=== PATIENT | male | born 1940 | race Caucasian/White ===

== ENCOUNTER 2018-02-16 01:52 | Inpatient (IN) ==
[2018-02-16] MEDS ORDERED: Bisacodyl 10 MG Supp RECTAL PRN (04:31)
[2018-02-16] MEDS ORDERED: Potassium Chlor 20 mEq Premix 20 MEQ/100 ML PIGGYBACK IV.SIG PRN ×2 (04:31)
[2018-02-16] MEDS ORDERED: Potassium Phosphate Inj 30 MMOL in Sodium Chlor 0.9% Inj 250 ML IV.SIG PRN (04:31)
[2018-02-16] MEDS ORDERED: Potassium Chlor 40 mEq Premix 40 MEQ/100 ML PIGGYBACK IV.SIG PRN ×2 (04:31)
[2018-02-16] MEDS ORDERED: Magnesium Oxide 400 MG Tablet PO PRN (04:31)
[2018-02-16] MEDS ORDERED: Potassium Chloride 25 MEQ Effervescent Tablet PO PRN (04:31)
[2018-02-16] MEDS ORDERED: Magnesium Sulfate Inj 2 GM in Sodium Chlor 0.9% Inj 96 ML IV.SIG PRN (04:31)
[2018-02-16] MEDS ORDERED: Acetaminophen 325 MG Tablet PO PRN (04:31)
[2018-02-16] MEDS ORDERED: Sodium Phosphate Inj 30 MMOL in Sodium Chlor 0.9% Inj 250 ML IV.SIG PRN (04:31)
[2018-02-16] MEDS ORDERED: Magnesium Sulfate Inj 4 GM in Sodium Chlor 0.9% Inj 92 ML IV.SIG PRN (04:31)
[2018-02-16] MEDS ORDERED: Potassium Phosphate 500 MG Soluble Tablet PO PRN ×2 (04:31)
[2018-02-16] MEDS ORDERED: Sod Chloride 0.9% Inj 1,000 ML IV.CONT SCH (04:45)
--- NOTE | 2018-02-16 04:55 | P.HPCC ---
History of Present Illness Service: [facility] Primary Care Physician: UNKNOWN Chief Complaint: Neck pain History of Present Illness: 77yM transferred from [facility] for cervical spinal epidural abscess. The patient is a "snow bird" who visits during the winter from [place]. He reports that he flew here 4 days ago, and 3 days ago woke up with severe pain in his upper neck. He reports chronic "pins and needles" to the fingers of both hands and to both feet which is unchanged from baseline; he also reports chronic urinary incontinence. Denies trauma, fever or chills, extremity weakness, new areas of numbness/ paresthesias, saddle anesthesia, foot drop, or difficulty ambulating. He denies history of IVDA and has not had any spinal injections. The patient states that he had surgery on his neck in [place], [place] in 1994 for "back pain" (not traumatic) but is unsure of what his diagnosis at that time was. He uses both a cane and a walker to ambulate at baseline and is independent of all ADLs. The patient was seen at [facility] yesterday evening and had a non- contrast CT of his cervical spine performed which was read as "Posterior epidural fluid collection extending from C1-C3, coursing between the C1 and C2 spinous processes and extending into the posterior occipital paraspinal soft tissues. The epidural component of the fluid collection contributes to moderate to severe canal stenosis at C2-C3, with flattening of the cervical cord at this level. No evidence of overt osseous destructive changes to suggest osteomyelitis / discitis. Cannot exclude epidural abscess and the sterility of the collection should be determined on a clinical basis, however contrast-enhanced MRI is recommended to further assess for early osteomyelitis/ discitis or cord signal changes at C2-C3. Nonspecific skin thickening with mild subcutaneous and superficial fascial edema of the left occipital and posterior neck soft tissues. Postsurgical changes of C4-C5 ACDF without evidence of hardware complication. Multilevel, multifactorial cervical spondylosis as described in detail above." The ED physician at [facility] spoke with Dr. Karimi of neurosurgery prior to transfer and the patient was given a dose of solumedrol, cefepime, and vanco. Of note, the patient has a pacemaker and therefore is unable to have an MRI performed. - Diagnosis (1) Spinal epidural abscess (2) H/O cardiac pacemaker (3) Chronic back pain Inpatient Certification: I certify that the inpatient services were ordered in accordance with Medicare regulations governing the order. This includes certification that hospital inpatient services are reasonable and necessary and in the case of services not specified as inpatient-only under 42 CFR 419.22(n), that they are appropriately provided as inpatient services in accordance to with the 2-midnight benchmark under 43 CFR 412.3(e) Estimated Total Length of Stay (Days): 7 Plans for Post Hospital Care: Not yet determined Review of Systems All other systems reviewed negative except as stated in HPI Constitutional: Denies fever(s) Eyes: Denies blurry vision Comments: Hard of hearing Cardiovascular: Denies chest pain Respiratory: Denies cough Gastrointestinal: Denies nausea Comments: Chronic urinary incontinence Musculoskeletal: Reports neck pain, Denies abnormal walking Neurologic: Denies confusion Psychiatric: Denies confusion PMFSH - History History Provided By: Patient, Medical Record - Medical History Medical History: Medical History (Last Updated 02/16/18 @ 09:00 by Quinn Karimi MD) Emphysema, unspecified GERD (gastroesophageal reflux disease) High cholesterol Hypotension Myocardial infarction Presence of intrathecal pump - Surgical History Surgical History: Surgical History (Last Reviewed 02/16/18 @ 08:55 by Quinn Karimi MD) History of ankle surgery History of back surgery History of coronary artery stent placement History of neck surgery History of permanent cardiac pacemaker placement Hx of joint replacement Hx of tonsillectomy - Social History I have reviewed the patient's Social History: Yes Medications and Allergies Active Medications: Active Medications Acetaminophen (Tylenol) 650 mg PO Q6H PRN PRN Reason: PAIN 1-10 AND/OR FEVER >101F Al Hydroxide/Mg Hydroxide (Milk Of Ronaldo Lipatricia) 30 ml PO Q12H PRN PRN Reason: Mild Constipation Bisacodyl (Dulcolax Supp) 10 mg RECTAL DAILY PRN PRN Reason: SEVERE CONSITIPATION Chlorhexidine Gluconate (Chlorhexidine 2% Cloth) 3 pack TOPICAL DAILY@0400 EDUARDO Stop: 02/22/18 03:59 Chlorhexidine Gluconate (Chlorhexidine 2% Cloth) 3 pack TOPICAL DAILY@0400 PRN PRN Reason: Extra cloth needed Stop: 02/22/18 03:59 Famotidine (Pepcid Pf Inj) 20 mg IV.PUSH Q12HR EDUARDO Famotidine (Pepcid) 20 mg PO BID EDUARDO Magnesium Sulfate 4 gm/ Sodium (Chloride) 100 mls @ 50 mls/hr IV.SIG UNSCH PRN PRN Reason: For Magnesium 0.9 - 1.1 mg/dL Magnesium Sulfate 2 gm/ Sodium (Chloride) 100 mls @ 50 mls/hr IV.SIG UNSCH PRN PRN Reason: For Magnesium 1.2 - 1.6 mg/dL Sodium Chloride (Ns Inj) 1,000 mls @ 84 mls/hr IV.CONT .[id number] EDUARDO Potassium Chloride (Kcl 40 Meq Premix Inj) 40 meq in 100 mls @ 25 mls/hr IV.SIG Q2H PRN PRN Reason: For Potassium 2.8 - 3.2 mEq/L Potassium Chloride (Kcl 20 Meq Premix Inj) 20 meq in 100 mls @ 50 mls/hr IV.SIG Q2H PRN PRN Reason: For Potassium 3.3 - 3.5 mEq/L Potassium Chloride (Kcl 20 Meq Premix Inj) 20 meq in 100 mls @ 50 mls/hr IV.SIG Q2H PRN PRN Reason: For Potassium 2.8 - 3.2 mEq/L Potassium Phosphate 30 mmol/ (Sodium Chloride) 260 mls @ 42 mls/hr IV.SIG UNSCH PRN PRN Reason: SEE LABEL COMMENTS Sodium Phosphate 30 mmol/ (Sodium Chloride) 260 mls @ 42 mls/hr IV.SIG UNSCH PRN PRN Reason: For Phosphorus < 2.5 mg/dL Potassium Chloride (Kcl 40 Meq Premix Inj) 40 meq in 100 mls @ 25 mls/hr IV.SIG UNSCH PRN PRN Reason: For Potassium 3.3 - 3.5 mEq/L Lactulose (Lactulose Liq) 30 ml PO DAILY PRN PRN Reason: SEVERE CONSITIPATION Magnesium Oxide (Mag-Ox) 800 mg PO UNSCH PRN PRN Reason: For Magnesium 1.2 - 1.6 mg/dL Ondansetron HCl (Zofran Inj) 4 mg IV.PUSH Q6H PRN PRN Reason: NAUSEA OR VOMITING Oxycodone HCl (Roxicodone) 5 mg PO Q4H PRN PRN Reason: PAIN SCALE 1 TO 5 Oxycodone HCl (Roxicodone) 10 mg PO Q4H PRN PRN Reason: PAIN SCALE 6 TO 10 Potassium Bicarb/Potassium Chloride (K-Lyte Cl Eff) 50 meq PO UNSCH PRN PRN Reason: For Potassium 3.3 - 3.5 mEq/L Potassium Phosphate (K-Phos Original) 2,000 mg PO Q4H PRN PRN Reason: Phosphorus Less Than 2.5 mg/dL Potassium Phosphate (K-Phos Original) 2,000 mg PO UNSCH PRN PRN Reason: SEE LABEL COMMENTS Senna/Docusate Sodium (Rosemary-Colace) 1 tab PO BID EDUARDO Sennosides (Senokot) 17.2 mg PO Q12H PRN PRN Reason: Moderate Constipation Sodium Chloride (Ns Flush) 2 ml IV.FLUSH BID EDUARDO Sodium Chloride (Ns Flush) 2 ml IV.FLUSH PRN PRN PRN Reason: FLUSH AFTER USING IV ACCESS Allergies Allergy/AdvReac Type Severity Reaction Status Date / Time latex Allergy Severe Rash, Verified 02/16/18 05:19 Generalized penicillin G Allergy Severe anaphylacti Verified 02/16/18 05:56 c pregabalin Allergy Severe Rash, Verified 02/16/18 05:19 Generalized Results - Labs CBC & Chem 7: 02/16/18 05:00 02/16/18 05:00 Exam Vital signs: Initial Documented Vital Signs Pulse Rate 62 02/16/18 03:55 Respiratory Rate 18 02/16/18 03:55 Pulse Oximetry 98 02/16/18 03:55 Last Documented Vital Signs Temperature 96.1 F L 02/16/18 04:00 Pulse Rate 60 02/16/18 05:00 Respiratory Rate 32 H 02/16/18 05:00 Blood Pressure 106/56 L 02/16/18 05:00 Pulse Oximetry 96 02/16/18 05:00 Narrative: GEN: Elderly male lying in bed in no acute distress HEENT: NCAT, PERRL, mucosa moist and pink. Hard of hearing. NECK: Trachea midline, mild tenderness to midline and left paraspinal cervical spine CARDIO: Regular rate and rhythm, paced on quality assurance monitor body. Pacemaker present in left upper chest. RESP: Clear to auscultation bilaterally ABD/GI: Soft and non-tender in all quadrants EXT/MSK: No peripheral edema SKIN: Warm and well-perfused NEURO: A&Ox3, speech clear and fluent. Motor strength 5/5 in bilateral shoulder / elbow/ wrist flexion and extension, 5/5 in bilateral hip and knee flexion/ extension, and in bilateral plantar/dorsiflexion. No foot drop. No drift. It Help Desk Technician strength 5/5 bilaterally. Sensation intact to all extremities. No focal neuro deficits. PSYCH: Appropriate affect. Caprini VTE Risk Assessment Caprini VTE Risk Assessment: Moderate/High Risk (score >= 2) VTE Pharmacological Exception Reason: Spinal surgery Caprini Risk Assessment Model: Point Value = 1 Point Value = 2 Point Value = 3 Point Value = 5 Age 41-60 Minor surgery BMI > 25 kg/m2 Swollen legs Varicose veins or History of unexplained or recurrent spontaneous Oral contraceptives or hormone replacement Sepsis (< 1 month) Serious lung disease, including pneumonia (< 1 month) Abnormal pulmonary function Acute myocardial infarction Congestive heart failure (< 1 month) History of inflammatory bowel disease Medical patient at bed rest Age 61-74 Arthroscopic surgery Major open surgery (> 45 min) Laparoscopic surgery (> 45 min) Malignancy Confined to bed (> 72 hours) Immobilizing plaster cast Central venous access Age >= 75 History of VTE Family history of VTE Factor V Leiden Prothrombin [id number] Lupus anticoagulant Anticardiolipin antibodies Elevated serum homocysteine Heparin-induced thrombocytopenia Other congenital or acquired thrombophilia Stroke (< 1 month) Elective arthroplasty Hip, pelvis, or leg fracture Acute spinal cord injury (< 1 month) Prophylaxis Regimen: Total Risk Factor Score Risk Level Prophylaxis Regimen 0-1 Low Early ambulation 2 Moderate Order ONE of the following: *Sequential Compression Device (SCD) *Heparin 5000 units SQ BID 3-4 Higher Order ONE of the following medications: *Heparin 5000 units SQ TID *Enoxaparin/Lovenox 40 mg SQ daily (WT < 150 kg, CrCl > 30 mL/min) *Enoxaparin/Lovenox 30 mg SQ daily (WT < 150 kg, CrCl > 10-29 mL/min) *Enoxaparin/Lovenox 30 mg SQ BID (WT < 150 kg, CrCl > 30 mL/min) AND/OR *Sequential Compression Device (SCD) 5 or more Highest Order ONE of the following medications: *Heparin 5000 units SQ TID (Preferred with Epidurals) *Enoxaparin/Lovenox 40 mg SQ daily (WT < 150 kg, CrCl > 30 mL/min) *Enoxaparin/Lovenox 30 mg SQ daily (WT < 150 kg, CrCl > 10-29 mL/min) *Enoxaparin/Lovenox 30 mg SQ BID (WT < 150 kg, CrCl > 30 mL/min) AND *Sequential Compression Device (SCD) Assessment and Plan - Problem List (1) Spinal epidural abscess Code(s): G06.1 - Intraspinal abscess and granuloma Status: Acute (2) H/O cardiac pacemaker Code(s): Z95.0 - Presence of cardiac pacemaker Status: Acute (3) Chronic back pain Code(s): M54.9 - Dorsalgia, unspecified; G89.29 - Other chronic pain Status: Acute - Assessment and Plan Plan: 77yM presenting with severe neck pain and suspected cervical spinal epidural abscess NEURO: Suspected spinal epidural abscess Chronic lower back pain * Patient had a non-contrast CT scan of his C spine performed prior to transfer ; however, only the reports were sent (not images). The patient is unable to safely get an MRI due to implanted pacemaker. Therefore, I will repeat CT C spine with and without contrast here, and will obtain CTH as well * Neurosurgery recommendations appreciated * Pain control * Bed rest for now * Frequent neuro checks * Antibiotics as detailed below CARDIO: History of implanted pacemaker * Cardiac monitoring * Keep Mg++ >2.0, K++ >4.0 PULM: * No active issues, encourage use of incentive spirometer F/E/N: * NPO until evaluated by neurosurgery * Maintenance IV fluids * Labs were essentially unremarkable at [facility], will check again here * ICU electrolyte protocol ID: Suspected spinal epidural abscess * F/U blood cultures * Continue vancomycin and cefepime (patient reportedly allergic to PCN but received a dose of cefepime prior to transfer without adverse reaction) * MRSA swab PROPHY: * SCDs only in case patient needs surgical intervention * If surgery is not planned, start SQH * PPI OVERALL: This patient is critically ill with high cervical spinal epidural abscess. He requires close monitoring in an ICU setting. Counseling/ Coordination of Care: This patient is critically ill with impairment of one or more vital organ systems with a high probability of imminent or life-threatening deterioration. High-complexity medical decision making was required to support vital organ function and/ or prevent deterioration in the patient's condition. Total critical care time spent is 55 minutes giving full attention to this patient. This includes examining the patient, gathering history from someone other than the patient (i.e. chart review), discussing the patient's care with other providers, ordering and interpreting radiologic studies, ordering and interpreting laboratory values, and documentation. Amount of time is separate from teaching, counseling the patient and/or family, and exclusive of procedures. Code Status: Full Discussed Condition With: ED physician at [facility]/ transfer center
[2018-02-16] MEDS ORDERED: Vancomycin Consult Pharmacy OTHER PRN (05:00)
[2018-02-16 05:19] LABS: Baso % (Auto) 0.1 % (0.0-2.0); Hematocrit 34.3 % (39.0-51.0); Hemoglobin 11.6 gm/dL (13.0-17.0); Lymph # (Auto) 0.3 th/mm3 (1.0-4.8); Lymph % (Auto) 6.7 % (9.0-44.0); Mean Corpuscular HGB Conc 33.7 % (32.0-36.0); Mean Corpuscular Hemoglobin 29.4 pg (27.0-34.0); Mean Corpuscular Volume 87.2 fL (80.0-100.0); Mono # (Auto) 0.2 th/mm3 (0.0-0.9); Mono % (Auto) 3.3 % (0.0-8.0); Neut # (Auto) 4.6 th/mm3 (1.8-7.7); Neut % (Auto) 89.9 % (16.0-70.0); Platelet Count 173 th/mm3 (150-450); Red Blood Count 3.93 mil/mm3 (4.50-5.90); Red Cell Distribution Width 15.7 % (11.6-17.2); White Blood Count 5.1 th/mm3 (4.0-11.0)
[2018-02-16 05:30] LABS: INR 2.1 Ratio; Prothrombin Time 21.4 sec (9.8-11.6)
[2018-02-16 05:39] LABS: Alanine Aminotransferase 17 U/L (12-78); Albumin 2.7 g/dL (3.4-5.0); Anion Gap 9 meq/L (5-15); Aspartate Aminotransferase 21 U/L (15-37); Blood Urea Nitrogen 39 mg/dL (7-18); Calcium 8.1 mg/dL (8.5-10.1); Carbon Dioxide 23.4 meq/L (21.0-32.0); Chloride 107 meq/L (98-107); Glomerular Filtration Rate 60 mL/min (>89); Glucose,Random 164 mg/dL (74-106); Magnesium 2.3 mg/dL (1.5-2.5); Potassium 4.2 meq/L (3.5-5.1); Sodium 139 meq/L (136-145)
[2018-02-16 05:41] LABS: Alkaline Phosphatase 69 U/L (45-117); Total Protein 6.6 g/dL (6.4-8.2)
--- NOTE | 2018-02-16 05:50 | CT ---
EXAM DATE: 02/16/2018 5:43 AM EST AGE/SEX: 77 years / Male INDICATIONS: Posterior Cephalgia. CLINICAL DATA: This is the patient's initial encounter. Patient reports that signs and symptoms have been present for 1 day and indicates a pain score of 4/10. MEDICAL/SURGICAL HISTORY: Cardiovascular disease. Pacemaker. Fusion, cervical. RADIATION DOSE: 39.79 CTDI (mGy) COMPARISON: No prior exams available for comparison. TECHNIQUE: CT of the head without contrast. Using automated exposure control and adjustment of the mA and/or kV according to patient size, radiation dose was kept as low as reasonably achievable to ob tain optimal diagnostic quality images. DICOM format image data is available electronically for revi ew and comparison. FINDINGS: Cerebrum: The ventricles, sulci, and basal cisterns are prominent characteristic of moderate severit y atrophy.. No evidence of midline shift, mass lesion, hemorrhage or acute infarction. No extraaxia l fluid collections are seen. Posterior Fossa: The cerebellum and brainstem are intact. The 4th ventricle is midline. The cerebe llopontine angle is unremarkable. Extracranial: The visualized portion of the orbits is intact. Skull: The calvaria is intact. No evidence of skull fracture. CONCLUSION: 1. Moderate severity central and cortical atrophy. 2. No acute findings in the brain. . Electronically signed by: Roni Ohara MD Board Certified Radiologist 02/16/2018 5:48 AM EST
[2018-02-16] MEDS ORDERED: Vancomycin Inj 1,000 MG in Sodium Chlor 0.9% Inj 250 ML IV.SIG SCH ×4 (06:00)
--- NOTE | 2018-02-16 06:29 | CT ---
EXAM DATE: 02/16/2018 5:51 AM EST AGE/SEX: 77 years / Male INDICATIONS: Evaluate for abscess. CLINICAL DATA: This is the patient's initial encounter. Patient reports that signs and symptoms have been present for 1 day and indicates a pain score of 7/10. MEDICAL/SURGICAL HISTORY: Cardiovascular disease. Fusion, cervical. Pacemaker. RADIATION DOSE: 24.65 CTDI (mGy) COMPARISON: No prior exams available for comparison. [facility] 2018-02-15 TECHNIQUE: Contiguous axial images were obtained using helical multirow detector technique. Data se ts were acquired prior to and after intravenous administration 58 ml Omnipaque 350 (iohexol) nonioni c water-soluble contrast as a single exam dose. The volumetric data was post-processed with multipl carmen reconstruction in oblique axial, sagittal, and coronal planes. Using automated exposure control and adjustment of the mA and/or kV according to patient size, radiation dose was kept as low as reas onably achievable to obtain optimal diagnostic quality images. DICOM format image data is available electronically for review and comparison. FINDINGS: There is normal alignment of the vertebral bodies of the cervical spine. Anterior cervical plate is present at C4 and C5 with partial bony fusion from C4 through C6. There is advanced endplate sclerosi s and interspace narrowing at C6-7 and C7-T1 with prominent anterior osteophytes. The posterior eleme nts are in normal alignment. The atlantoaxial articulation is intact. On the postcontrast images, no epidural enhancement or paraspinal enhancement seen. C2-3: The neural foramina patent. C3-4: Moderate severity neural foraminal narrowing and broad ridge of osteophytes flattening the liliana tral margin of the thecal sac. C4-5: Surgical level. Severe bilateral bony neural foraminal stenosis. C5-6: Osteophytic ridging flattens the ventral margin of thecal sac. There is moderate bilateral bon y neural foraminal stenosis.. C6-7: Osteophytic ridging without flattening the ventral margin of thecal sac. Mild bilateral bony n eural foraminal stenosis. C7-T1: Moderate bilateral bony neural foraminal stenosis. CONCLUSION: 1. No abnormal areas of enhancement seen. 2. Anterior plate C4-5 foraminal stenosis at multiple levels as described above. Electronically signed by: Roni Ohara MD Board Certified Radiologist 02/16/2018 6:28 AM EST
[2018-02-16 07:51] VITALS: TEMP 97.7; O2SAT 98
--- NOTE | 2018-02-16 08:59 | P.CONNS ---
History of Present Illness Service: Neurosurgery Consult date: 02/16/18 Requesting Physician: Lluvia Alford ([employer]) Reason for Consult: Neck pain Primary Care Provider: UNKNOWN Chief Complaint: Neck pain History of Present Illness: 77-year-old gentleman with a chronic history of neck and low back pain with associated neuropathy affecting his hands and feet. He has had cervical and lumbar spine surgery in [place] in the remote past and also has an intrathecal morphine pain pump for his chronic pain. He moved here about 4 days ago and states that 3 days ago he started noticing left paraspinal cervical neck pain which really got worse last night prompting him to go to the emergency room at [facility]. Plain CT scan cervical spine was obtained which suggested the possibility of paraspinal and epidural upper cervical fluid collection and he was transferred to [facility] for further management. He has a cardiac pacemaker in place and cannot have an MRI scan and is also on chronic Coumadin therapy with elevated/therapeutic PT/INR. CT of the cervical spine with contrast obtained at [facility] does not reveal any concern for enhancing abnormality in the cervical spine or an abscess as per the radiologist. He has a history of C4-5 anterior cervical fusion with plate placement along with multilevel degenerative disc disease and especially in the lower cervical spine. He denies any new numbness or paresthesias numbness in the upper or lower extremity extremities and remarkably states that his neck pain has significantly improved overnight. He denies any fevers or chills or history of any infection or IV drug abuse. He is a chronic low back pain is unchanged. Review of Systems All other systems reviewed negative except as stated in HPI [facility] - History History Provided By: Patient - Medical History Medical History: Medical History (Last Updated 02/16/18 @ 09:00 by Quinn Karimi MD) Emphysema, unspecified GERD (gastroesophageal reflux disease) High cholesterol Hypotension Myocardial infarction Presence of intrathecal pump - Surgical History Surgical History: Surgical History (Last Reviewed 02/16/18 @ 08:55 by Quinn Karimi MD) History of ankle surgery History of back surgery History of coronary artery stent placement History of neck surgery History of permanent cardiac pacemaker placement Hx of joint replacement Hx of tonsillectomy - Tobacco History Second Hand Smoke Exposure: No Smoking Status: Never smoker - Alcohol History How Often Do You Have a Drink Containing Alcohol: 2 to 4 times a month - Substance Use History Substance History: No History of Abuse - Travel History Recent Travel in the [place] Within the Last 8 Weeks: No Recent Travel Out of the Country Within the Last 8 Weeks: No - Immunization History Hx Influenza Vaccine This Season: Yes Medications and Allergies Active Medications: Active Medications Acetaminophen (Tylenol) 650 mg PO Q6H PRN PRN Reason: FEVER >101F Al Hydroxide/Mg Hydroxide (Milk Of Magnsandeep Liq) 30 ml PO Q12H PRN PRN Reason: Mild Constipation Bisacodyl (Dulcolax Supp) 10 mg RECTAL DAILY PRN PRN Reason: SEVERE CONSITIPATION Chlorhexidine Gluconate (Chlorhexidine 2% Cloth) 3 pack TOPICAL DAILY@0400 [facility] Stop: 02/22/18 03:59 Chlorhexidine Gluconate (Chlorhexidine 2% Cloth) 3 pack TOPICAL DAILY@0400 PRN PRN Reason: Extra cloth needed Stop: 02/22/18 03:59 Famotidine (Pepcid Pf Inj) 20 mg IV.PUSH Q12HR [facility] Last Admin: 02/16/18 08:03 Dose: 20 mg Famotidine (Pepcid) 20 mg PO BID [facility] Last Admin: 02/16/18 08:09 Dose: Not Given Magnesium Sulfate 4 gm/ Sodium (Chloride) 100 mls @ 50 mls/hr IV.SIG UNSCH PRN PRN Reason: For Magnesium 0.9 - 1.1 mg/dL Magnesium Sulfate 2 gm/ Sodium (Chloride) 100 mls @ 50 mls/hr IV.SIG UNSCH PRN PRN Reason: For Magnesium 1.2 - 1.6 mg/dL Sodium Chloride (Ns Inj) 1,000 mls @ 84 mls/hr IV.CONT .[id number] [facility] Last Admin: 02/16/18 04:45 Dose: 84 mls/hr Potassium Chloride (Kcl 40 Meq Premix Inj) 40 meq in 100 mls @ 25 mls/hr IV.SIG Q2H PRN PRN Reason: For Potassium 2.8 - 3.2 mEq/L Potassium Chloride (Kcl 20 Meq Premix Inj) 20 meq in 100 mls @ 50 mls/hr IV.SIG Q2H PRN PRN Reason: For Potassium 3.3 - 3.5 mEq/L Potassium Chloride (Kcl 20 Meq Premix Inj) 20 meq in 100 mls @ 50 mls/hr IV.SIG Q2H PRN PRN Reason: For Potassium 2.8 - 3.2 mEq/L Potassium Phosphate 30 mmol/ (Sodium Chloride) 260 mls @ 42 mls/hr IV.SIG UNSCH PRN PRN Reason: SEE LABEL COMMENTS Sodium Phosphate 30 mmol/ (Sodium Chloride) 260 mls @ 42 mls/hr IV.SIG UNSCH PRN PRN Reason: For Phosphorus < 2.5 mg/dL Potassium Chloride (Kcl 40 Meq Premix Inj) 40 meq in 100 mls @ 25 mls/hr IV.SIG UNSCH PRN PRN Reason: For Potassium 3.3 - 3.5 mEq/L Cefepime HCl 2,000 mg/ Sodium (Chloride) 100 mls @ 200 mls/hr IV.SIG Q8H [facility] Last Infusion: 02/16/18 06:20 Dose: Infused Vancomycin HCl 1,250 mg/ (Sodium Chloride) 262.5 mls @ 250 mls/hr IV.SIG Q24H [facility] Lactulose (Lactulose Liq) 30 ml PO DAILY PRN PRN Reason: SEVERE CONSITIPATION Magnesium Oxide (Mag-Ox) 800 mg PO UNSCH PRN PRN Reason: For Magnesium 1.2 - 1.6 mg/dL Miscellaneous Information ([facility] Ordered Lab Info) 0 each OTHER ONCE ONE Stop: 02/19/18 04:46 Ondansetron HCl (Zofran Inj) 4 mg IV.PUSH Q6H PRN PRN Reason: NAUSEA OR VOMITING Oxycodone HCl (Roxicodone) 5 mg PO Q4H PRN PRN Reason: PAIN SCALE 1 TO 5 Oxycodone HCl (Roxicodone) 10 mg PO Q4H PRN PRN Reason: PAIN SCALE 6 TO 10 Pharmacy Profile Note (Vancomycin Consult Pharmacy) 1 each OTHER UNSCH PRN PRN Reason: Pharmacy to dose Potassium Bicarb/Potassium Chloride (K-Lyte Cl Eff) 50 meq PO UNSCH PRN PRN Reason: For Potassium 3.3 - 3.5 mEq/L Potassium Phosphate (K-Phos Original) 2,000 mg PO Q4H PRN PRN Reason: Phosphorus Less Than 2.5 mg/dL Potassium Phosphate (K-Phos Original) 2,000 mg PO UNSCH PRN PRN Reason: SEE LABEL COMMENTS Senna/Docusate Sodium (Rosemary-Colace) 1 tab PO BID [facility] Last Admin: 02/16/18 08:09 Dose: Not Given Sennosides (Senokot) 17.2 mg PO Q12H PRN PRN Reason: Moderate Constipation Sodium Chloride (Ns Flush) 2 ml IV.FLUSH BID [facility] Last Admin: 02/16/18 08:08 Dose: Not Given Sodium Chloride (Ns Flush) 2 ml IV.FLUSH PRN PRN PRN Reason: FLUSH AFTER USING IV ACCESS Allergies Allergy/AdvReac Type Severity Reaction Status Date / Time latex Allergy Severe Rash, Verified 02/16/18 05:19 Generalized penicillin G Allergy Severe anaphylacti Verified 02/16/18 05:56 c pregabalin Allergy Severe Rash, Verified 02/16/18 05:19 Generalized Exam Vital signs: Vital Signs 02/16/18 03:55 02/16/18 04:00 02/16/18 04:30 Temperature 96.1 F L Pulse Rate 62 63 60 Respiratory Rate 18 24 13 Blood Pressure 102/60 96/52 L Pulse Oximetry 98 98 98 02/16/18 05:00 02/16/18 05:30 02/16/18 06:00 Temperature Pulse Rate 60 75 60 Respiratory Rate 32 H 11 L 22 Blood Pressure 106/56 L 99/55 L 106/56 L Pulse Oximetry 96 94 L 99 02/16/18 07:35 02/16/18 07:50 Temperature 97.7 F Pulse Rate 60 60 Respiratory Rate 14 Blood Pressure 110/58 L Pulse Oximetry 98 Intake & Output 02/15/18 02/16/18 02/16/18 18:59 06:59 18:59 Intake Total 350 / 350 Balance 350 / 350 Weight 73 kg Intake: IV 350 / 350 Maxipime Inj 2,000 MG In NS Inj 100 / 100 100 ML @ 200 mls/hr IV.SIG Q8H [facility] Rx#:[id number] Vancomycin Inj 1,000 MG In NS 250 / 250 Inj 250 ML @ 250 mls/hr IV.SIG DAILY@0600 [facility] Rx#:[id number] Oral 0 / 0 Other: # Voids 0 Date of Last Bowel Movement 02/15/18 02/15/18 Weight On Admission 73 kg - Constitutional no acute distress - Routine HEENT Exam Head: Present: normocephalic, atraumatic Eye: Present: EOMI, PERRL ENT: Present: oropharynx clear, external ear normal - Routine Neck Exam Present: supple, full ROM - Routine Respiratory Exam Present: CTA bilaterally - Routine Cardiovascular Exam Present: irregularly irregular - Routine Abdominal Exam Present: soft, normoactive bowel sounds - Routine Extremities Exam Present: full ROM - Routine Skin Exam Present: intact - Routine Neurological Exam Present: oriented X3, CN II-XII intact, plantar reflex, moving all extremities, normal speech Results - Laboratory Findings CBC and BMP: 02/16/18 05:00 02/16/18 05:00 Abnormal lab findings: Abnormal Labs 02/16/18 02/16/18 02/16/18 05:00 05:00 05:00 RBC 3.93 L Hgb 11.6 L Hct 34.3 L Neut % (Auto) 89.9 H Lymph % (Auto) 6.7 L Lymph # (Auto) 0.3 L PT 21.4 H BUN 39 H Estimated GFR 60 L Random Glucose 164 H Calcium 8.1 L Albumin 2.7 L - Diagnostic Findings Additional findings: Impressions Cervical Spine CT 02/16/18 00:00 CONCLUSION: 1. No abnormal areas of enhancement seen. 2. Anterior plate C4-5 foraminal stenosis at multiple levels as described above. Head CT 02/16/18 00:00 CONCLUSION: 1. Moderate severity central and cortical atrophy. 2. No acute findings in the brain. . Assessment and Plan - Assessment (1) Chronic neck and back pain Code(s): M54.2 - Cervicalgia; M54.9 - Dorsalgia, unspecified; G89.29 - Other chronic pain Status: Chronic - Plan 77-year-old gentleman with a chronic history of neck and back pain with multiple cervical and lumbar spine surgeries and a intrathecal morphine pain pump with an acute exacerbation of the left paraspinal neck pain over the past 3 -4 days which has improved overnight. CT scan with contrast taken at [facility] per the radiologist does not suggest any infection or enhancing abnormality in the cervical spine. Given his pacemaker he cannot have an MRI scan. He is also on chronic Coumadin therapy for his coronary artery disease and atrial fibrillation along with other extensive medical comorbidities. At this point does not appear to be in any new neurologic symptoms or clinically suggestion of any infection in the cervical spine. I would recommend pain control and increase his diet and activity status as tolerated with the clinical monitoring. Should his symptoms worsen then we may need to correct his PT/INR and consider complete spine myelogram for further evaluation. Discussed with patient who wants to avoid any further interventional workup and obviously surgical intervention continue with the pain control.
[2018-02-16] MEDS ORDERED: Senna/Docusate Sodium 8.6/50 MG Tablet PO SCH (09:00)
[2018-02-16] MEDS ORDERED: Famotidine 20 MG Tablet PO SCH (09:00)
[2018-02-16] MEDS ORDERED: Famotidine PF Inj 20 MG/2 ML Vial IV.PUSH SCH (09:00)
[2018-02-16 12:15] VITALS: BP 90/69; PULSE 83; RESP 41
--- NOTE | 2018-02-16 12:41 | P.DS ---
Date of admission: 02/16/18 03:45 Primary care physician: UNKNOWN Attending physician on discharge: Lluvia Alford Anticipated date of discharge: 02/16/18 Brief History from admission: 77yM transferred from [facility] for cervical spinal epidural abscess. The patient is a "snow bird" who visits during the winter from [place]. He reports that he flew here 4 days ago, and 3 days ago woke up with severe pain in his upper neck. He reports chronic "pins and needles" to the fingers of both hands and to both feet which is unchanged from baseline; he also reports chronic urinary incontinence. Denies trauma, fever or chills, extremity weakness, new areas of numbness/ paresthesias, saddle anesthesia, foot drop, or difficulty ambulating. He denies history of IVDA and has not had any spinal injections. The patient states that he had surgery on his neck in [place], [place] in 1994 for "back pain" (not traumatic) but is unsure of what his diagnosis at that time was. He uses both a cane and a walker to ambulate at baseline and is independent of all ADLs. The patient was seen at [facility] yesterday evening and had a non- contrast CT of his cervical spine performed which was read as "Posterior epidural fluid collection extending from C1-C3, coursing between the C1 and C2 spinous processes and extending into the posterior occipital paraspinal soft tissues. The epidural component of the fluid collection contributes to moderate to severe canal stenosis at C2-C3, with flattening of the cervical cord at this level. No evidence of overt osseous destructive changes to suggest osteomyelitis / discitis. Cannot exclude epidural abscess and the sterility of the collection should be determined on a clinical basis, however contrast-enhanced MRI is recommended to further assess for early osteomyelitis/ discitis or cord signal changes at C2-C3. Nonspecific skin thickening with mild subcutaneous and superficial fascial edema of the left occipital and posterior neck soft tissues. Postsurgical changes of C4-C5 ACDF without evidence of hardware complication. Multilevel, multifactorial cervical spondylosis as described in detail above." The ED physician at [facility] spoke with Dr. Karimi of neurosurgery prior to transfer and the patient was given a dose of solumedrol, cefepime, and vanco. Of note, the patient has a pacemaker and therefore is unable to have an MRI performed. Patient update on day of discharge: Impressions Cervical Spine CT 02/16/18 00:00 CONCLUSION: 1. No abnormal areas of enhancement seen. 2. Anterior plate C4-5 foraminal stenosis at multiple levels as described above. Head CT 02/16/18 00:00 CONCLUSION: 1. Moderate severity central and cortical atrophy. 2. No acute findings in the brain. Plan per Neurosurgery-Dr. Karimi 77-year-old gentleman with a chronic history of neck and back pain with multiple cervical and lumbar spine surgeries and a intrathecal morphine pain pump with an acute exacerbation of the left paraspinal neck pain over the past 3 -4 days which has improved overnight. CT scan with contrast taken at [facility] per the radiologist does not suggest any infection or enhancing abnormality in the cervical spine. Given his pacemaker he cannot have an MRI scan. He is also on chronic Coumadin therapy for his coronary artery disease and atrial fibrillation along with other extensive medical comorbidities. At this point does not appear to be in any new neurologic symptoms or clinically suggestion of any infection in the cervical spine. I would recommend pain control and increase his diet and activity status as tolerated with the clinical monitoring. Should his symptoms worsen then we may need to correct his PT/INR and consider complete spine myelogram for further evaluation. Discussed with patient who wants to avoid any further interventional workup and obviously surgical intervention continue with the pain control. Plan on discharge: Patient advised to continue all home medications and follow-up with his pain management doctor. Evaluated by PT and cleared for discharge home. Patient was advised to establish follow-up with a primary care physician in his area and he told me that he was in the process of switching his healthcare insurance and would choose a primary care physician in network himself. DS: Diagnosis - Discharge Diagnosis (1) H/O cardiac pacemaker Status: Acute (2) Chronic neck and back pain Status: Chronic DS: Summary Hospital Course: Patient was transferred to [facility] ICU and admitted by critical care service. Imaging studies did not reveal any epidural abscess. Patient was evaluated by Dr. Vasquez from neurosurgery who did not feel patient had an cervical epidural abscess and advised patient to be followed up by his pain management physician for further management of his neck pain. All antibiotics were stopped. Patient to be discharged home with follow-up with his pain management physician and to resume all home medications. - Time Spent with Patient Total time spent providing and/or coordinating discharge services: Less than 30 minutes - Quality: VTE Deep Vein Thrombosis/Pulmonary Embolism Present on Admission: No Exam Vital signs: Vital Signs 02/16/18 03:55 02/16/18 04:00 02/16/18 04:30 Temperature 96.1 F L Pulse Rate 62 63 60 Respiratory Rate 18 24 13 Blood Pressure 102/60 96/52 L Pulse Oximetry 98 98 98 02/16/18 05:00 02/16/18 05:30 02/16/18 06:00 Temperature Pulse Rate 60 75 60 Respiratory Rate 32 H 11 L 22 Blood Pressure 106/56 L 99/55 L 106/56 L Pulse Oximetry 96 94 L 99 02/16/18 06:30 02/16/18 07:00 02/16/18 07:26 Temperature Pulse Rate 62 60 61 Respiratory Rate 32 H 21 19 Blood Pressure 102/55 L 110/55 L 114/54 L Pulse Oximetry 98 99 100 02/16/18 07:30 02/16/18 07:35 02/16/18 07:50 Temperature 97.7 F Pulse Rate 60 60 60 Respiratory Rate 24 14 Blood Pressure 110/58 L 110/58 L Pulse Oximetry 99 98 02/16/18 08:00 02/16/18 08:30 02/16/18 09:00 Temperature Pulse Rate 60 60 60 Respiratory Rate 20 21 30 H Blood Pressure 112/65 115/56 L 113/58 L Pulse Oximetry 99 97 99 02/16/18 09:30 02/16/18 10:00 02/16/18 10:30 Temperature Pulse Rate 63 63 64 Respiratory Rate 29 H 21 32 H Blood Pressure 140/75 119/89 113/60 Pulse Oximetry 96 100 96 02/16/18 11:00 02/16/18 11:52 02/16/18 12:00 Temperature Pulse Rate 68 68 83 Respiratory Rate 45 H 41 H Blood Pressure 119/57 L 90/69 L Pulse Oximetry 98 Intake & Output 02/15/18 02/16/18 02/16/18 18:59 06:59 18:59 Intake Total 350 / 350 Balance 350 / 350 Weight 73 kg Intake: IV 350 / 350 Maxipime Inj 2,000 MG In NS Inj 100 / 100 100 ML @ 200 mls/hr IV.SIG Q8H [facility] Rx#:[id number] Vancomycin Inj 1,000 MG In NS 250 / 250 Inj 250 ML @ 250 mls/hr IV.SIG DAILY@0600 [facility] Rx#:[id number] Oral 0 / 0 Other: # Voids 0 Date of Last Bowel Movement 02/15/18 02/15/18 Weight On Admission 73 kg Results Procedures completed during hospitalization: None Completed studies during hospitalization: Cervical Spine CT 02/16/18 00:00 CONCLUSION: 1. No abnormal areas of enhancement seen. 2. Anterior plate C4-5 foraminal stenosis at multiple levels as described above. Head CT 02/16/18 00:00 CONCLUSION: 1. Moderate severity central and cortical atrophy. 2. No acute findings in the brain. . Labs on day of discharge: Labs from last 24 hours 02/16/18 02/16/18 02/16/18 05:00 05:00 05:00 WBC RBC Hgb Hct MCV MCH MCHC RDW Plt Count MPV Neut % (Auto) Lymph % (Auto) [place] % (Auto) Eos % (Auto) Baso % (Auto) Neut # (Auto) Lymph # (Auto) [place] # (Auto) Eos # (Auto) Baso # (Auto) WBC Differential Differential Comment ESR 67 H PT INR Sodium 139 Potassium 4.2 Chloride 107 Carbon Dioxide 23.4 Anion Gap 9 BUN 39 H Creatinine 1.17 Estimated GFR 60 L Random Glucose 164 H Calcium 8.1 L Magnesium 2.3 Total Bilirubin 0.4 AST 21 ALT 17 Alkaline Phosphatase 69 Total Protein 6.6 Albumin 2.7 L Nasal Screen MRSA (PCR) Blood Type B Positive Blood Type Recheck Required Antibody Screen Negative 02/16/18 02/16/18 02/16/18 05:00 05:00 04:00 WBC 5.1 RBC 3.93 L Hgb 11.6 L Hct 34.3 L MCV 87.2 MCH 29.4 MCHC 33.7 RDW 15.7 Plt Count 173 MPV 9.0 Neut % (Auto) 89.9 H Lymph % (Auto) 6.7 L [place] % (Auto) 3.3 Eos % (Auto) 0.0 Baso % (Auto) 0.1 Neut # (Auto) 4.6 Lymph # (Auto) 0.3 L [place] # (Auto) 0.2 Eos # (Auto) 0.0 Baso # (Auto) 0.0 WBC Differential . Differential Comment Auto diff final ESR PT 21.4 H INR 2.1 Sodium Potassium Chloride Carbon Dioxide Anion Gap BUN Creatinine Estimated GFR Random Glucose Calcium Magnesium Total Bilirubin AST ALT Alkaline Phosphatase Total Protein Albumin Nasal Screen MRSA (PCR) Not detected Blood Type Blood Type Recheck Antibody Screen - Impressions ITS Impressions Cervical Spine CT 02/16/18 00:00 CONCLUSION: 1. No abnormal areas of enhancement seen. 2. Anterior plate C4-5 foraminal stenosis at multiple levels as described above. Head CT 02/16/18 00:00 CONCLUSION: 1. Moderate severity central and cortical atrophy. 2. No acute findings in the brain. . Discharge Plan - Discharge Disposition Patient Disposition: Discharge Home - Discharge Condition Condition: Stable - Discharge Order Discharge Orders: Discharge Order (Routine); Ordered 02/16/18 Ordered By: Valentino Anderson - Discharge Details Anticipated Discharge Date: 02/16/18 - Physicians Team Primary Care Provider: UNKNOWN, Attending Provider: Lluvia Alford Other Providers: Quinn Karimi MD - Rxs /Orders / Referrals /Forms Prescriptions: New acetaminophen 325 mg Tablet 650 mg PO Q6H PRN (Reason: FEVER >101F) RF: 0 Referrals: UNKNOWN, [Primary Care Provider] - See Instructions - Discharge Instructions Additional Instructions: Follow up with your own pain management physician - call to rechedule missed appointment on 02/16/19
[2018-02-17] MEDS ORDERED: Chlorhexidine Gluconate 2% 1 Pack (2 Cloths) TOPICAL SCH (04:00)
[2018-02-17] MEDS ORDERED: Chlorhexidine Gluconate 2% 1 Pack (2 Cloths) TOPICAL PRN (04:00)
[2018-02-17] MEDS ORDERED: Vancomycin Inj 1,250 MG in Sodium Chlor 0.9% Inj 250 ML IV.SIG SCH (05:00)
[2018-02-19] MEDS ORDERED: Pharmacy Ordered Lab Info OTHER ONE (04:45)
== END 2018-02-16 12:46 | disposition home or self-care (01) ==
LOC: N03 03:45
PROVIDERS: ADMIT Surgery Surgical Critical Care; ATTEND Surgery Surgical Critical Care